=== PATIENT | male | born 1985 | race Caucasian/White ===

== ENCOUNTER → 2023-12-13 16:55 | Outpatient (REF) | payer BC, SELFPAY | LOC: HWRAD 16:55 | PROVIDERS: ATTENDING PHYSICIAN Internal Medicine Rheumatology; FAMILY PHYSICIAN Family Medicine | DX: M79.0 Rheumatism, unspecified (principal); M25.579 Pain in unspecified ankle and joints of unspecified foot | CPT/HCPCS: 73610; 73630 ==